=== PATIENT | male | born 1970 | race Two or more races ===

== ENCOUNTER 2016-10-28 06:53 | Emergency (ER) | payer MEDICAID ==
[2016-10-28 08:17] VITALS: BP 114/80
== END 2016-10-28 08:17 | disposition home or self-care (01) ==
LOC: ED 06:53
DX: R11.10 Vomiting, unspecified (principal); R19.7 Diarrhea, unspecified
CPT/HCPCS: Q0162

== ENCOUNTER 2017-11-04 20:50 | Emergency (ER) | payer SELFPAY ==
[~2017-11-04] VITALS: Ht 165.1 cm; Wt 79.4 kg
[2017-11-04 21:06] VITALS: Ht 165.1 cm; Wt 79.4 kg
[2017-11-04 21:44] LABS: microscopic required? NO
[2017-11-04 22:10] LABS: urine erythrocyte NEGATIVE (NEGATIVE)
[2017-11-04 23:11] VITALS: BP 115/74
== END 2017-11-04 23:25 | disposition home or self-care (01) ==
LOC: ED 20:50
PROVIDERS: Emergency Medicine
DX: K40.90 Unilateral inguinal hernia, without obstruction or gangrene, not specified as recurrent (principal)
CPT/HCPCS: J1885